=== PATIENT | male | born 1970 | race Caucasian/White ===

== ENCOUNTER 2018-02-24 00:39 | Emergency (ER) | payer OTHER ==
[~2018-02-24] VITALS: Ht 180.3 cm; Wt 104.3 kg
[2018-02-24 00:47] VITALS: BP 132/81
--- NOTE | 2018-02-24 00:47 | NUR ---
to bed # 1 ambulatory , report given to Jos Barker
--- NOTE | 2018-02-24 00:53 | NUR ---
Patient ambulated to bed 2. RN evaluating patient at bedside.
--- NOTE | 2018-02-24 00:59 | NUR ---
PT PRESENTS TO ED WITH C/O RT EAR PAIN RADIATING TO JAW X 1 DAY S/P APPLYING HIS HEARING AID. NO OBVIOUS OBSTRUCTION OR DEFORMITY TO RT EAR. PT REPORTS CHRONIC DIFFICULTY HEARING. PT DENIES MEDICAL HX. NO AT HOME MEDICATIONS. PT PLACED INTO BED, PENDING MD NINA.
[2018-02-24] MEDS ORDERED: KETOROLAC 30 MG/ML VIAL IM ONE (01:50)
[2018-02-24 02:05] VITALS: BP 126/83
--- NOTE | 2018-02-24 02:06 | NUR ---
Patient discharged with v/s stable. Written and verbal after care instructions given and explained. Patient alert, oriented and verbalized understanding of instructions. Ambulatory with steady gait. All questions addressed prior to discharge. ID band removed. Patient advised to follow up with PMD. Rx of NORCO, NAPROSYN,OFLOAXCIN given. Patient educated on indication of medication including possible reaction and side effects. Opportunity to ask questions provided and answered.
== END 2018-02-24 02:06 | disposition home or self-care (01) ==
LOC: MED 00:39
DX: H60.91 Unspecified otitis externa, right ear (principal)
CPT/HCPCS: 96372; 99283; J1885

== ENCOUNTER 2018-05-28 10:21 | Emergency (ER) | payer OTHER ==
[~2018-05-28] VITALS: Ht 190.5 cm; Wt 107.1 kg
[2018-05-28 10:24] VITALS: BP 124/78
--- NOTE | 2018-05-28 10:34 | NUR ---
48 yo m bib family w/ c/o abscess to right buttock crease x 2 days. 8/10 pain, no medications taken for pain today. took norco the other day w/ little effectiveness on pain. denies n/v/d/fevers. hx denies rx denies
[2018-05-28] MEDS ORDERED: KETOROLAC 60 MG/2 ML VIAL IM ONE (10:45)
[2018-05-28] MEDS ORDERED: traMADol 50 MG TAB PO ONE (10:45)
[2018-05-28] MEDS ORDERED: CLINDAMYCIN 600 MG/4 ML VIAL IM ONE (10:45)
--- NOTE | 2018-05-28 11:23 | NUR ---
Patient discharged with v/s stable. Written and verbal after care instructions given and explained. Patient alert, oriented and verbalized understanding of instructions. Ambulatory with steady gait. All questions addressed prior to discharge. ID band removed. Patient advised to follow up with PMD. Rx of Clindamycin, Tramdol, Motrin given. Patient educated on indication of medication including possible reaction and side effects. Opportunity to ask questions provided and answered.
[2018-05-28 11:24] VITALS: BP 132/74
== END 2018-05-28 11:23 | disposition home or self-care (01) ==
LOC: MED 10:21
DX: K61.0 Anal abscess (principal)
CPT/HCPCS: 90471; 90715; 96372; 99283; J1885; J3490

== ENCOUNTER 2020-06-10 01:40 | Emergency (ER) | payer BC, OTHER ==
[~2020-06-10] VITALS: Ht 180.3 cm; Wt 108.4 kg
[2020-06-10 01:45] VITALS: BP 140/73
[2020-06-10] MEDS ORDERED: LIDOCAINE/EPI 1% 1:100000 20 ML VIAL INJ ONE (02:30)
[2020-06-10] MEDS ORDERED: IBUPROFEN 600 MG TAB PO ONE (02:30)
[2020-06-10 03:06] VITALS: BP 140/73
== END 2020-06-10 03:06 | disposition home or self-care (01) ==
LOC: MED 01:40
DX: L02.31 Cutaneous abscess of buttock (principal)
CPT/HCPCS: 10060; 99283; J2001